=== PATIENT | female | born 1980 | race Caucasian/White ===

== ENCOUNTER 2019-10-26 20:34 | Inpatient (IN) | payer MEDICAID ==
[~2019-10-26] VITALS: Ht 157.5 cm; Wt 47.2 kg
[~2019-10-26 20:34] MED LIST: MIDAZOLAM 1 MG/ML, 5ML ONE; PROPOFOL 10 MG/ML, 100ML IV ONE
[2019-10-26] MEDS ORDERED: SODIUM CHLORIDE FLUSH 10ML SYR IVF ONE (21:00)
[2019-10-26] MEDS ORDERED: THIAMINE 100 MG in SODIUM CHLORIDE 0.9% 50 ML IVPB ONE (21:00)
[2019-10-26] MEDS ORDERED: MIDAZOLAM 1 MG/ML, 5ML IVPush ONE ×2 (21:00)
[2019-10-26] MEDS ORDERED: PLEASE ENTER ALLERGIES MC SCH (21:00)
[2019-10-26] MEDS ORDERED: PLEASE ENTER HEIGHT AND WEIGHT MC SCH (21:00)
[2019-10-26] MEDS ORDERED: FOLIC ACID 5 MG/ML IM ONE (21:00)
[2019-10-26] MEDS ORDERED: SODIUM CHLORIDE 0.9% 1,000ML IVBOLUS ONE (21:00)
--- NOTE | 2019-10-26 21:06 | NUR ---
GRECE-FAMILY MEMBER [phone]
[2019-10-26] MEDS ORDERED: MIDAZOLAM 1 MG/ML, 2ML ONE (21:07)
[2019-10-26 21:18] LABS: MEAN CORPUSCULAR HEMOGLOBIN 38.2 pg (27.0-34.8); MEAN CORPUSCULAR HGB CONC 33.7 g/dL (32.4-35.8); MEAN CORPUSCULAR VOLUME 113.2 fL (80-100); MEAN PLATELET VOLUME 8.9 fL (7.4-10.4); PLATELET COUNT 233 x10^3/uL (130-400); RED BLOOD COUNT 2.95 x10^6/uL (3.82-5.3); RED CELL DISTRIBUTION WIDTH 13.9 % (9.6-15.2)
[2019-10-26 21:33] LABS: BASOPHILS # (AUTO) 0.03 x10^3/uL (0-0.1); BASOPHILS % (AUTO) 0 % (0-1); EOSINOPHILS # (AUTO) 0.11 x10^3/uL (0-0.4); EOSINOPHILS % (AUTO) 1 % (1-7); LYMPHOCYTES # (AUTO) 1.16 x10^3/uL (1-3.4); LYMPHOCYTES % (AUTO) 9 % (22-44); MD SCAN; MONOCYTES # (AUTO) 1.01 x10^3/uL (0.2-0.8); MONOCYTES % (AUTO) 8 % (2-9); NEUTROPHILS % (AUTO) 83 % (42-75)
--- NOTE | 2019-10-26 21:46 | NUR ---
SEA MAY- SISTER [phone]
[2019-10-26] MEDS ORDERED: FENTANYL PF 2,500 MCG in SODIUM CHLORIDE 0.9% 200 ML IV PRN (21:58)
[2019-10-26] MEDS ORDERED: PROPOFOL 100 ML IV PRN (21:58)
[2019-10-26] MEDS ORDERED: MAGNESIUM SULFATE 1 GM, THIAMINE 100 MG, FOLIC ACID 1 MG, MVI ADULT 10 ML in SODIUM CHL... IV ONE (22:00)
[2019-10-26] MEDS ORDERED: LIDOCAINE-MPF 1%, 2ML ENDO PRN (22:00)
[2019-10-26] MEDS: SODIUM CHLORIDE 0.9% 1,000 ML IV SCH ×2 (22:00→22:03)
[2019-10-26] MEDS ORDERED: ACETAMINOPHEN 650 MG/20.3 ML UDC NG PRN (22:00)
[2019-10-26] MEDS ORDERED: SODIUM CHLORIDE FLUSH 10ML SYR IVF PRN (22:00)
[2019-10-26] MEDS ORDERED: PHARMACY MAY ADJ FOR RENAL FX MC SCH (22:00)
[2019-10-26] MEDS ORDERED: FENTANYL PF 250 MCG in SODIUM CHLORIDE 0.9% 245 ML IV PRN (22:03)
[2019-10-26] MEDS ORDERED: SODIUM PHOSPHATE 20 MMOL in SODIUM CHLORIDE 0.9% 250 ML IVPB PRN (22:03)
[2019-10-26 22:07] LABS: ALANINE AMINOTRANSFERASE 87 U/L (12-78); ANION GAP 14 mmol/L (5-15); CALCIUM 7.9 mg/dL (8.5-10.1); CHLORIDE 111 mmol/L (98-107); CREATININE 0.51 mg/dL (0.55-1.02)
[2019-10-26 22:12] LABS: ALKALINE PHOSPHATASE 279 U/L (45-117); BILIRUBIN,TOTAL 2.6 mg/dL (0.2-1.0); TOTAL PROTEIN 6.4 g/dL (6.4-8.2)
[2019-10-26] MEDS: MIDAZOLAM HCL 50 MG in SODIUM CHLORIDE 0.9% 240 ML IV PRN (22:26)
[2019-10-26] MEDS ORDERED: CALCIUM CHLORIDE 13.6 MEQ in DEXTROSE 5% 100 ML IVPB PRN (22:30)
[2019-10-26] MEDS ORDERED: MAGNESIUM SULFATE 1 GM in SODIUM CHLORIDE 0.9% 50 ML IVPB PRN (22:30)
[2019-10-26] MEDS: PROPOFOL 100 ML IV PRN (22:38)
[2019-10-26 23:17] LABS: INTERNATIONAL NORMALIZED RATIO 1.07 (0.93-1.1); PROTHROMBIN TIME 11.4 Seconds (9.6-11.5)
--- NOTE | 2019-10-26 23:42 | NUR ---
labs sent to lab, central line placed by md sanchez. Pts vss
[2019-10-26 23:51] LABS: TRIGLYCERIDES 165 mg/dL (50-200)
[2019-10-26 23:55] LABS: TROPONIN I 0.097 ng/mL (0.000-0.045)
[2019-10-27] MEDS ORDERED: DEXTROSE 4 GM TAB.CHEW PO PRN
[2019-10-27] MEDS ORDERED: GLUCAGON 1 MG IM PRN
--- NOTE | 2019-10-27 00:17 | NUR ---
LATE ENTRY: PT Arrives from [facility] s/p cardiac arrest per ems. Pts boyfriend saw pt arrest at home and started cpr, when ems arrived pt was found to be in v-tach and was defribrilated. Pt then was taken to [facility] ED and intubated and then transfered to [facility] post stabilization. Pt on arrival was having seizure like activity, pt was given 5mg x2 of versed pushes to control seizures. Pt after the CT was completed pt had an arterial line placed in the right groin and dressed apporpriately, and cvad to right internal jugular. Pt prior to this had cooling pads placed and pt was medicated and labs drawn to follow the protocol. Dr. Suresh and Dr. Armstrong were informed of need for k-rider to get potassium up. Md sanchez placed central line. Pt had versed drip stopped and started on diprivan per Dr. Chavez request. Pts lines were verified at bedside with transport Destiney RN. Pts vitals slightly improved while down here and targeted temperature was reached. Report was called to Chantal Singh. bedside glucose of 103 prior to transfer. Pt was not transported by this rn.
[2019-10-27 01:40] LABS: MEAN CORPUSCULAR HEMOGLOBIN 37.8 pg (27.0-34.8); MEAN CORPUSCULAR HGB CONC 33.1 g/dL (32.4-35.8); MEAN PLATELET VOLUME 9.1 fL (7.4-10.4); PLATELET COUNT 221 x10^3/uL (130-400); RED BLOOD COUNT 2.99 x10^6/uL (3.82-5.3); RED CELL DISTRIBUTION WIDTH 13.9 % (9.6-15.2)
[2019-10-27 01:53] LABS: ALANINE AMINOTRANSFERASE 87 U/L (12-78); ALBUMIN 3.1 g/dL (3.4-5.0); ANION GAP 16 mmol/L (5-15); CHLORIDE 108 mmol/L (98-107); CREATININE 0.46 mg/dL (0.55-1.02)
[2019-10-27 01:55] LABS: ALKALINE PHOSPHATASE 280 U/L (45-117); BILIRUBIN,TOTAL 3.2 mg/dL (0.2-1.0); TOTAL PROTEIN 6.6 g/dL (6.4-8.2)
[2019-10-27] MEDS: KSCALE TO 4.0 IV SCH ×6 (02:00→21:44)
[2019-10-27] MEDS: HEPARIN 5,000 UNITS/ML, 1ML SQ SCH ×3 (02:21→17:28)
[2019-10-27] MEDS: BUSPIRONE 10 MG TABLET NG SCH ×3 (02:21→17:29)
[2019-10-27 02:26] LABS: BASOPHILS # (AUTO) 0.05 x10^3/uL (0-0.1); BASOPHILS % (AUTO) 0 % (0-1); EOSINOPHILS % (AUTO) 0 % (1-7); LYMPHOCYTES # (AUTO) 0.75 x10^3/uL (1-3.4); LYMPHOCYTES % (AUTO) 5 % (22-44); MD SCAN; MONOCYTES # (AUTO) 0.65 x10^3/uL (0.2-0.8); MONOCYTES % (AUTO) 4 % (2-9); NEUTROPHILS # (AUTO) 14.18 x10^3/uL (1.8-6.8); NEUTROPHILS % (AUTO) 91 % (42-75)
[2019-10-27] MEDS ORDERED: POTASSIUM CHLORIDE PMX 100 ML IV ONE ×5 (02:30→22:00)
[2019-10-27 03:23] LABS: AMPHETAMINE SCREEN, URINE Negative (Negative); BARBITURATE SCREEN, URINE Negative (Negative); BENZODIAZEPINE SCREEN, URINE Positive (Negative); CANNABINOID SCREEN, URINE Negative (Negative); COCAINE SCREEN, URINE Negative (Negative); METHADONE SCREEN, URINE Negative (Negative); OPIATE SCREEN, URINE Negative (Negative)
[2019-10-27 03:44] VITALS: BP 118/66
[2019-10-27 05:21] LABS: MEAN CORPUSCULAR HEMOGLOBIN 37.9 pg (27.0-34.8); MEAN CORPUSCULAR HGB CONC 33.5 g/dL (32.4-35.8); MEAN CORPUSCULAR VOLUME 113.2 fL (80-100); MEAN PLATELET VOLUME 9.6 fL (7.4-10.4); PLATELET COUNT 217 x10^3/uL (130-400); RED BLOOD COUNT 2.79 x10^6/uL (3.82-5.3); RED CELL DISTRIBUTION WIDTH 14.1 % (9.6-15.2)
[2019-10-27 05:27] LABS: CHLORIDE 108 mmol/L (98-107)
[2019-10-27 05:37] LABS: ANION GAP 10 mmol/L (5-15); CALCIUM 7.9 mg/dL (8.5-10.1); CREATININE 0.33 mg/dL (0.55-1.02); TROPONIN I 0.098 ng/mL (0.000-0.045)
[2019-10-27] MEDS: MIDAZOLAM HCL 50 MG in SODIUM CHLORIDE 0.9% 240 ML IV PRN ×3 (05:56→18:12)
[2019-10-27] MEDS: NOREPINEPHRINE 4 MG in SODIUM CHLORIDE 0.9% 246 ML IV PRN ×2 (05:58→18:12)
[2019-10-27 06:00] LABS: BASOPHILS # (AUTO) 0.11 x10^3/uL (0-0.1); BASOPHILS % (AUTO) 1 % (0-1); EOSINOPHILS % (AUTO) 0 % (1-7); LYMPHOCYTES # (AUTO) 1.07 x10^3/uL (1-3.4); LYMPHOCYTES % (AUTO) 8 % (22-44); MD SCAN; MONOCYTES # (AUTO) 0.73 x10^3/uL (0.2-0.8); MONOCYTES % (AUTO) 5 % (2-9); NEUTROPHILS # (AUTO) 11.84 x10^3/uL (1.8-6.8); NEUTROPHILS % (AUTO) 86 % (42-75)
[2019-10-27] MEDS: SODIUM CHLORIDE 0.9% 1,000 ML IV SCH ×4 (06:52→23:41)
[2019-10-27 06:58] LABS: FIO2 30 %
[2019-10-27] MEDS: PANTOPRAZOLE 40 MG IV IV SCH (08:22)
[2019-10-27] MEDS: SODIUM CHLORIDE FLUSH 10ML SYR IVF SCH ×2 (08:22→21:29)
[2019-10-27] MEDS ORDERED: SODIUM CHLORIDE 0.9%, 500ML IVBOLUS ONE (10:30)
[2019-10-27] MEDS: THIAMINE 200 MG in SODIUM CHLORIDE 0.9% 50 ML IV SCH (10:55)
[2019-10-27] MEDS: PROPOFOL 100 ML IV PRN ×2 (12:07→17:29)
[2019-10-27 13:14] LABS: MICROSCOPIC INDICATED
[2019-10-27] MEDS: DEXTROSE 50%, 50ML SYRINGE IVPush PRN ×2 (13:17→20:25)
[2019-10-27 13:27] LABS: CULTURE INDICATED? NO
[2019-10-28] MEDS: MIDAZOLAM HCL 50 MG in SODIUM CHLORIDE 0.9% 240 ML IV PRN ×2 (00:09→06:11)
[2019-10-28] MEDS: PROPOFOL 100 ML IV PRN ×2 (00:11→05:37)
[2019-10-28] MEDS: KSCALE TO 4.0 IV SCH ×2 (02:00→05:43)
[2019-10-28] MEDS: BUSPIRONE 10 MG TABLET NG SCH (02:36)
[2019-10-28] MEDS: HEPARIN 5,000 UNITS/ML, 1ML SQ SCH ×3 (02:37→18:56)
[2019-10-28] MEDS: DEXTROSE 50%, 50ML SYRINGE IVPush PRN ×2 (02:48→08:27)
[2019-10-28 04:52] LABS: MEAN CORPUSCULAR HEMOGLOBIN 37.8 pg (27.0-34.8); MEAN CORPUSCULAR HGB CONC 33.2 g/dL (32.4-35.8); MEAN CORPUSCULAR VOLUME 114.1 fL (80-100); PLATELET COUNT 185 x10^3/uL (130-400); RED BLOOD COUNT 2.51 x10^6/uL (3.82-5.3); RED CELL DISTRIBUTION WIDTH 14.3 % (9.6-15.2)
[2019-10-28 05:01] LABS: ANION GAP 5 mmol/L (5-15); CALCIUM 7.1 mg/dL (8.5-10.1); CHLORIDE 115 mmol/L (98-107); CREATININE 0.24 mg/dL (0.55-1.02)
[2019-10-28 05:48] LABS: BASOPHILS # (AUTO) 0.03 x10^3/uL (0-0.1); BASOPHILS % (AUTO) 0 % (0-1); EOSINOPHILS # (AUTO) 0.14 x10^3/uL (0-0.4); EOSINOPHILS % (AUTO) 1 % (1-7); LYMPHOCYTES # (AUTO) 1.48 x10^3/uL (1-3.4); LYMPHOCYTES % (AUTO) 14 % (22-44); MD SCAN; MONOCYTES # (AUTO) 0.34 x10^3/uL (0.2-0.8); MONOCYTES % (AUTO) 3 % (2-9); NEUTROPHILS # (AUTO) 8.39 x10^3/uL (1.8-6.8); NEUTROPHILS % (AUTO) 81 % (42-75)
[2019-10-28] MEDS ORDERED: POTASSIUM CHLORIDE PMX 100 ML IV ONE (06:00)
[2019-10-28] MEDS: PANTOPRAZOLE 40 MG IV IV SCH (08:26)
[2019-10-28] MEDS: SODIUM CHLORIDE FLUSH 10ML SYR IVF SCH ×2 (08:27→21:30)
[2019-10-28] MEDS: THIAMINE 200 MG in SODIUM CHLORIDE 0.9% 50 ML IV SCH (09:03)
[2019-10-28] MEDS: SODIUM CHLORIDE 0.9% 1,000 ML IV SCH (09:50)
[2019-10-28] MEDS ORDERED: LORazepam 0.5MG TABLET PO PRN (19:30)
[2019-10-28] MEDS ORDERED: LORazepam 2 MG/ML, 1ML IV PRN ×5 (19:30)
[2019-10-28] MEDS ORDERED: LORazepam 1MG TABLET PO PRN ×4 (19:30)
[2019-10-28] MEDS ORDERED: ACETAMINOPHEN 650 MG/20.3 ML UDC NG PRN (22:00)
[2019-10-29] MEDS: HEPARIN 5,000 UNITS/ML, 1ML SQ SCH ×3 (03:07→20:07)
[2019-10-29 04:51] LABS: MEAN CORPUSCULAR HEMOGLOBIN 37.9 pg (27.0-34.8); MEAN CORPUSCULAR HGB CONC 33.9 g/dL (32.4-35.8); MEAN PLATELET VOLUME 9.7 fL (7.4-10.4); PLATELET COUNT 158 x10^3/uL (130-400); RED BLOOD COUNT 2.65 x10^6/uL (3.82-5.3)
[2019-10-29 04:57] LABS: ANION GAP 11 mmol/L (5-15); CALCIUM 8.4 mg/dL (8.5-10.1); CHLORIDE 105 mmol/L (98-107)
[2019-10-29 04:58] LABS: CREATININE 0.33 mg/dL (0.55-1.02); TRIGLYCERIDES 74 mg/dL (50-200)
[2019-10-29 06:03] LABS: BASOPHILS # (AUTO) 0.02 x10^3/uL (0-0.1); BASOPHILS % (AUTO) 0 % (0-1); EOSINOPHILS # (AUTO) 0.09 x10^3/uL (0-0.4); EOSINOPHILS % (AUTO) 1 % (1-7); LYMPHOCYTES # (AUTO) 1.76 x10^3/uL (1-3.4); LYMPHOCYTES % (AUTO) 20 % (22-44); MD SCAN; MONOCYTES # (AUTO) 0.53 x10^3/uL (0.2-0.8); MONOCYTES % (AUTO) 6 % (2-9); NEUTROPHILS # (AUTO) 6.36 x10^3/uL (1.8-6.8); NEUTROPHILS % (AUTO) 73 % (42-75)
[2019-10-29] MEDS: POTASSIUM CHLORIDE 20 MEQ TAB.ER.PRT PO SCH ×2 (09:16→16:48)
[2019-10-29] MEDS: SODIUM CHLORIDE FLUSH 10ML SYR IVF SCH ×2 (09:40→20:08)
[2019-10-29] MEDS: THIAMINE 200 MG in SODIUM CHLORIDE 0.9% 50 ML IV SCH (09:40)
[2019-10-29] MEDS: LEVETIRACETAM 500 MG TABLET PO SCH ×2 (11:06→20:27)
[2019-10-29 14:05] VITALS: BP 122/89
[2019-10-29 20:00] VITALS: BP 126/93
[2019-10-30] VITALS: BP 146/94
[2019-10-30 02:13] VITALS: BP 126/81
[2019-10-30] MEDS: HEPARIN 5,000 UNITS/ML, 1ML SQ SCH ×3 (02:48→22:04)
[2019-10-30 05:26] LABS: ANION GAP 9 mmol/L (5-15); CALCIUM 8.7 mg/dL (8.5-10.1); CHLORIDE 105 mmol/L (98-107); CREATININE 0.32 mg/dL (0.55-1.02)
[2019-10-30 05:28] LABS: MEAN CORPUSCULAR HEMOGLOBIN 37.6 pg (27.0-34.8); MEAN CORPUSCULAR HGB CONC 33.5 g/dL (32.4-35.8); MEAN CORPUSCULAR VOLUME 112.5 fL (80-100); PLATELET COUNT 155 x10^3/uL (130-400); RED BLOOD COUNT 2.75 x10^6/uL (3.82-5.3); RED CELL DISTRIBUTION WIDTH 14.1 % (9.6-15.2)
[2019-10-30 07:05] LABS: BASOPHILS # (AUTO) 0.08 x10^3/uL (0-0.1); BASOPHILS % (AUTO) 1 % (0-1); EOSINOPHILS # (AUTO) 0.13 x10^3/uL (0-0.4); EOSINOPHILS % (AUTO) 2 % (1-7); LYMPHOCYTES # (AUTO) 1.29 x10^3/uL (1-3.4); LYMPHOCYTES % (AUTO) 21 % (22-44); MD SCAN; MONOCYTES # (AUTO) 0.51 x10^3/uL (0.2-0.8); MONOCYTES % (AUTO) 8 % (2-9); NEUTROPHILS # (AUTO) 4.07 x10^3/uL (1.8-6.8); NEUTROPHILS % (AUTO) 67 % (42-75)
[2019-10-30 08:29] VITALS: BP_SYST 116; BP_DIAS 7; BP_DIAS 72
[2019-10-30] MEDS: LEVETIRACETAM 500 MG TABLET PO SCH ×2 (11:27→22:04)
[2019-10-30] MEDS: THIAMINE 200 MG in SODIUM CHLORIDE 0.9% 50 ML IV SCH (11:28)
[2019-10-30] MEDS: SODIUM CHLORIDE FLUSH 10ML SYR IVF SCH ×2 (11:29→22:04)
[2019-10-30 15:18] VITALS: BP 107/72
[2019-10-30 20:30] VITALS: BP 118/81
[2019-10-31 02:16] VITALS: BP 94/60
[2019-10-31 05:43] LABS: ALBUMIN 2.7 g/dL (3.4-5.0); ANION GAP 6 mmol/L (5-15); CALCIUM 8.5 mg/dL (8.5-10.1); CHLORIDE 107 mmol/L (98-107)
[2019-10-31 05:50] LABS: MEAN CORPUSCULAR HEMOGLOBIN 38.1 pg (27.0-34.8); MEAN CORPUSCULAR HGB CONC 33.9 g/dL (32.4-35.8); MEAN CORPUSCULAR VOLUME 112.1 fL (80-100); MEAN PLATELET VOLUME 9.7 fL (7.4-10.4); PLATELET COUNT 195 x10^3/uL (130-400); RED BLOOD COUNT 2.82 x10^6/uL (3.82-5.3)
[2019-10-31 06:10] LABS: ALANINE AMINOTRANSFERASE 94 U/L (12-78); ALKALINE PHOSPHATASE 326 U/L (45-117); BILIRUBIN,TOTAL 1.2 mg/dL (0.2-1.0); CREATININE 0.43 mg/dL (0.55-1.02); TOTAL PROTEIN 6.3 g/dL (6.4-8.2)
[2019-10-31] MEDS: HEPARIN 5,000 UNITS/ML, 1ML SQ SCH ×2 (06:11→10:05)
[2019-10-31 06:34] LABS: BASOPHILS # (AUTO) 0.05 x10^3/uL (0-0.1); BASOPHILS % (AUTO) 1 % (0-1); EOSINOPHILS # (AUTO) 0.17 x10^3/uL (0-0.4); EOSINOPHILS % (AUTO) 3 % (1-7); LYMPHOCYTES # (AUTO) 1.53 x10^3/uL (1-3.4); LYMPHOCYTES % (AUTO) 26 % (22-44); MD SCAN; MONOCYTES # (AUTO) 0.84 x10^3/uL (0.2-0.8); MONOCYTES % (AUTO) 14 % (2-9); NEUTROPHILS # (AUTO) 3.24 x10^3/uL (1.8-6.8); NEUTROPHILS % (AUTO) 56 % (42-75)
[2019-10-31 07:20] VITALS: BP 107/69
[2019-10-31] MEDS: THIAMINE 200 MG in SODIUM CHLORIDE 0.9% 50 ML IV SCH (10:05)
[2019-10-31] MEDS: LEVETIRACETAM 500 MG TABLET PO SCH ×2 (10:05→20:07)
[2019-10-31] MEDS: SODIUM CHLORIDE FLUSH 10ML SYR IVF SCH ×2 (10:05→20:07)
[2019-10-31] MEDS ORDERED: ENOXAPARIN 40 MG/0.4 ML SQ SCH ×2 (13:00→18:00)
[2019-10-31 13:50] VITALS: BP 115/80
[2019-10-31 20:03] VITALS: BP 116/80
[2019-11-01 02:32] VITALS: BP 113/79
[2019-11-01 05:37] LABS: MEAN CORPUSCULAR HEMOGLOBIN 38.1 pg (27.0-34.8); MEAN CORPUSCULAR HGB CONC 33.6 g/dL (32.4-35.8); MEAN CORPUSCULAR VOLUME 113.4 fL (80-100); MEAN PLATELET VOLUME 9.1 fL (7.4-10.4); PLATELET COUNT 210 x10^3/uL (130-400); RED CELL DISTRIBUTION WIDTH 14.3 % (9.6-15.2)
[2019-11-01 05:48] LABS: ALBUMIN 2.6 g/dL (3.4-5.0); ANION GAP 6 mmol/L (5-15); CALCIUM 8.3 mg/dL (8.5-10.1); CHLORIDE 109 mmol/L (98-107)
[2019-11-01 05:51] LABS: ALANINE AMINOTRANSFERASE 74 U/L (12-78); ALKALINE PHOSPHATASE 293 U/L (45-117); BILIRUBIN,TOTAL 0.8 mg/dL (0.2-1.0); TOTAL PROTEIN 6.2 g/dL (6.4-8.2)
[2019-11-01 05:59] LABS: BASOPHILS # (AUTO) 0.02 x10^3/uL (0-0.1); BASOPHILS % (AUTO) 0 % (0-1); EOSINOPHILS # (AUTO) 0.18 x10^3/uL (0-0.4); EOSINOPHILS % (AUTO) 4 % (1-7); LYMPHOCYTES # (AUTO) 1.56 x10^3/uL (1-3.4); LYMPHOCYTES % (AUTO) 32 % (22-44); MD SCAN; MONOCYTES % (AUTO) 18 % (2-9); NEUTROPHILS # (AUTO) 2.23 x10^3/uL (1.8-6.8); NEUTROPHILS % (AUTO) 46 % (42-75)
[2019-11-01] MEDS ORDERED: POTASSIUM CHLORIDE 20 MEQ TAB.ER.PRT PO ONE (06:30)
[2019-11-01] MEDS ORDERED: MAGNESIUM SULFATE PMX 2GM/50ML 50 ML IV ONE (06:30)
[2019-11-01 07:29] LABS: % IRON SATURATION 26 % (20-55); CREATINE KINASE, TOTAL 146 U/L (26-192); IRON LEVEL 54 mcg/dL (50-170); TOTAL IRON BINDING CAPACITY 207 mcg/dL (250-450)
[2019-11-01] MEDS ORDERED: REGADENOSON 0.4 MG/5 ML SYRINGE ONE (08:50)
[2019-11-01] MEDS ORDERED: MAGNESIUM OXIDE 400 MG TABLET PO SCH (09:00)
[2019-11-01] MEDS ORDERED: THIAMINE 100MG TABLET PO SCH (09:00)
[2019-11-01] MEDS ORDERED: MULTIVITAMIN 1 TABLET PO SCH (09:00)
[2019-11-01] MEDS ORDERED: FOLIC ACID 1 MG TABLET PO SCH (09:00)
[2019-11-01] MEDS: LEVETIRACETAM 500 MG TABLET PO SCH (10:41)
[2019-11-01] MEDS ORDERED: POTASSIUM CHLORIDE 20 MEQ TAB.ER.PRT ONE (10:43)
[2019-11-01 11:24] VITALS: BP 119/83
[2019-11-01] MEDS ORDERED: MAGN400T50 PO (14:30)
[2019-11-01] MEDS ORDERED: THIA100T67 PO (14:30)
[2019-11-01] MEDS ORDERED: LEVE500T53 PO (14:30)
== END 2019-11-01 15:30 | disposition home or self-care (01) | DRG 196 ==
LOC: ED 21:06 → EDIP 22:00 → CCU 10-27 00:28 → 5SO 10-29 23:51 → DCLOUNGE 11-01 15:08
PROVIDERS: ADMIT Family Medicine; ATTEND Internal Medicine
PROC: 5A1945Z Respiratory Ventilation, 24-96 Consecutive Hours (ICD-10-PCS; principal; 2019-10-26)
PROC: 0BH17EZ Insertion of Endotracheal Airway into Trachea, Via Natural or Artificial Opening (ICD-10-PCS; 2019-10-26)
PROC: 02HV33Z Insertion of Infusion Device into Superior Vena Cava, Percutaneous Approach (ICD-10-PCS; 2019-10-26)
PROC: B548ZZA Ultrasonography of Superior Vena Cava, Guidance (ICD-10-PCS; 2019-10-26)
PROC: 03HY32Z Insertion of Monitoring Device into Upper Artery, Percutaneous Approach (ICD-10-PCS; 2019-10-27)
PROC: 0T9B70Z Drainage of Bladder with Drainage Device, Via Natural or Artificial Opening (ICD-10-PCS; 2019-10-27)
DX: I49.01 Ventricular fibrillation (principal); J96.01 Acute respiratory failure with hypoxia; G93.41 Metabolic encephalopathy; Z99.11 Dependence on respirator [ventilator] status; E83.51 Hypocalcemia; I07.1 Rheumatic tricuspid insufficiency; E83.42 Hypomagnesemia; E88.09 Other disorders of plasma-protein metabolism, not elsewhere classified; R56.9 Unspecified convulsions; I46.2 Cardiac arrest due to underlying cardiac condition; F10.239 Alcohol dependence with withdrawal, unspecified; R74.0 Nonspecific elevation of levels of transaminase and lactic acid dehydrogenase [LDH]; E16.2 Hypoglycemia, unspecified; D53.9 Nutritional anemia, unspecified; K70.10 Alcoholic hepatitis without ascites; D75.89 Other specified diseases of blood and blood-forming organs; D72.829 Elevated white blood cell count, unspecified; E87.6 Hypokalemia; Y90.9 Presence of alcohol in blood, level not specified
CPT/HCPCS: 36415; 36600; 70450; 71045; 76700; 78452; 80048; 80053; 80074; 80307; 81001; 82140; 82330; 82533; 82550; 82607; 82803; 82962; 83540; 83550; 83735; 84100; 84132; 84443; 84478; 84484; 85025; 85610; 85730; 87070; 87081; 87205; 93005; 93017; 93306; 94002; 94003; 96374; G0378; J1644; J1650; J2250; J2704; J2785; J3010; J3411; J3475; J3480; A9502; C9113; J2060; J7030; J7040; J7050